=== PATIENT | female | born 2000 | race Caucasian/White ===

== ENCOUNTER 2022-09-25 12:56 | Emergency (ER) | payer OTHER, SELFPAY ==
[2022-09-25] VITALS (12 sets, daily range): BP systolic 108–120; BP diastolic 63–73; PULSE 67–86; RESP 12–20; TEMP 36.7; O2SAT 96–100
--- NOTE | 2022-09-25 13:04 | ECG_ITS ---
Measurements Intervals [place] Rate: 66 P: 61 [place]: 144 QRS: 37 QRSD: 81 T: 10 QT: 411 QTc: 431 Interpretive Statements SINUS RHYTHM BASELINE ARTIFACT- III, AVL NORMAL ECG NO PREVIOUS ECG AVAILABLE FOR COMPARISON Electronically Signed On 09-25-2022 14:46:25 CDT by Anurag Butler D.O.
[2022-09-25] MEDS: SODIUM CHLORIDE 0.9% IV 1,000 ML 999 ML IV CONT (13:12)
[2022-09-25 13:22] LABS: Basophils Percent Auto 0.5 % (0.2-1.2); Eosinophils Absolute Auto 0.3 K/mm3 (0-0.3); Eosinophils Percent Auto 5.8 % (0-4.4); Hematocrit 32.7 % (37.0-47.0); Hemoglobin 10.2 g/dL (12.0-15.0); Immature Granulocyte Absolute 0.02 K/mm3 (0.00-0.031); Immature Granulocyte Percent A 0.4 % (0-0.5); Lymphocytes Absolute Auto 1.26 K/mm3 (0.9-3.2); Mean Corpuscular HGB Conc 31.2 g/dl (32-36); Mean Corpuscular Hemoglobin 26.1 pg (26-34); Mean Corpuscular Volume 83.6 fl (80-100); Monocytes Absolute Auto 0.4 K/mm3 (0.1-0.6); Monocytes Percent Auto 6.9 % (2.6-8.5); Neutrophils Absolute Auto 3.5 K/mm3 (1.3-6.7); Neutrophils Percent Auto 63.4 % (45.5-73.1); Platelet Count Result 261 k/mm3 (150-375); Red Blood Count 3.91 M/mm3 (4.2-5.4); Red Cell Distribution Width 16.8 % (11.5-14.5); White Blood Count 5.5 K/mm3 (4.5-10.0)
[2022-09-25 13:40] LABS: Alanine Aminotransferase 15 U/L (6-35); Albumin Level 3.6 g/dL (3.5-5.1); Alkaline Phosphatase 57 U/L (38-126); Anion Gap 6 mmol/L (8-16); Aspartate Amino Transferase 19 U/L (14-36); Bilirubin,Total 0.5 mg/dL (0.2-1.3); Blood Urea Nitrogen 12 mg/dL (7-17); Carbon Dioxide 25 mmol/L (22-30); Chloride 105 mmol/L (98-107); Estimated CRCL calculation 118 ml/min; Estimated Glomerular Filt Rate > 60; Glucose 125 mg/dL (65-110); Magnesium 1.9 mg/dL (1.6-2.3); Sodium 136 mmol/L (137-145)
[2022-09-25 14:17] LABS: Appearance Urine Clear (Clear); Bacteria Urine None Seen /hpf; Bilirubin Urine Negative (Negative); Blood Urine Negative (Negative); Color Urine Yellow (Yellow); Glucose Urine UA Negative (Negative); Ketones Urine Negative (Negative); Leukocyte Esterase Ur Trace LEU/UL (Negative); Nitrate Urine Negative (Negative); Protein Urine 1+ mg/dL (Negative); RBC Urine 0-2 /hpf (0-2); Specific Grav Ur 1.015 (1.001-1.035); Squamous Epithelial Cell Urine Few /hpf (Few); Urobilinogen Urine 0.2 mg/dL (<2.0); WBC Urine 0-5 /hpf; pH Urine 5.5 (5.0-9.0)
[2022-09-25 14:23] LABS: Add Urine Microscopic? YES
--- NOTE | 2022-09-25 14:45 | ED.GENADULT ---
HPI - General Adult General Chief complaint: Syncope Stated complaint: syncope after giving blood Time Seen by Provider: 09/25/22 12:59 History of Present Illness HPI narrative: Patient 22-year-old female who presents the emergency department with chief complaint of syncope. Patient reports that she was donating blood and started to get very lightheaded he got nauseated and felt as though she was going to pass out. Patient denies chest pain denies diarrhea denies abdominal pain. Patient does report that she has had heavy periods Related Data Allergies Allergy/AdvReac Type Severity Reaction Status Date / Time latex Allergy Rash Verified 09/25/22 13:06 ondansetron [From Zofran] AdvReac Nausea and Verified 09/25/22 13:06 Vomiting Review of Systems Review of Systems: A 10 system review of systems was completed on the patient and is negative except for what is stated in the HPI. Nursing and ancillary documentation was reviewed. Exam Narrative: GENERAL: Well-appearing, well-nourished, and in no acute distress. HEAD: Normocephalic, atraumatic. EYES: PERRLA and EOMI. ENT: Nares clear, no rhinorrhea or epistaxis. Mucous membranes moist. NECK: Supple. CHEST: Clear to auscultation. No respiratory distress. HEART: Regular rate and rhythm. No murmur heard. Normal peripheral pulses. ABDOMEN: Soft, nontender, nondistended, normal active bowel sounds. EXTREMITIES: Normal range of motion. No edema. SKIN: Warm, dry, no rash. NEURO: No focal deficits. Alert and oriented x3. PSYCH: Normal mood and affect. Course Vital Signs Vital signs: Vital Signs Temperature 36.7 C 09/25/22 12:59 Pulse Rate 67 09/25/22 12:59 Respiratory Rate 18 09/25/22 12:59 Blood Pressure 108/73 09/25/22 12:59 Pulse Oximetry 99 09/25/22 12:59 Oxygen Delivery Room Air 09/25/22 12:59 Temperature 36.7 C 09/25/22 12:59 Pulse Rate 79 09/25/22 14:45 Respiratory Rate 15 09/25/22 14:45 Blood Pressure 120/69 09/25/22 14:31 Pulse Oximetry 100 09/25/22 14:45 Oxygen Delivery Room Air 09/25/22 12:59 Medical Decision Making [facility] Narrative Medical decision making narrative: Differential diagnosis includes vasovagal syncope, anemia, electrolyte abnormality, UTI Laboratory studies were obtained which showed a hemoglobin of 10.2 electrolytes were otherwise within normal limits sodium was 136 creatinine was 0.6 glucose was 125 magnesium was 1.9 bilirubin and ALT and AST are within normal limits. Urinalysis showed 1+ protein and trace leukocyte esterase. Patient received a liter of normal saline and received Zofran in the emergency department. Patient was hydrated in the emergency department and is feeling much better at this time was able to ambulate without difficulty. Patient be discharged home to follow-up with her primary care provider Vital Signs Vital Signs: Vital Signs Temperature 36.7 C 09/25/22 12:59 Pulse Rate 67 09/25/22 12:59 Respiratory Rate 18 09/25/22 12:59 Blood Pressure 108/73 09/25/22 12:59 Pulse Oximetry 99 09/25/22 12:59 Oxygen Delivery Room Air 09/25/22 12:59 Temperature 36.7 C 09/25/22 12:59 Pulse Rate 79 09/25/22 14:45 Respiratory Rate 15 09/25/22 14:45 Blood Pressure 120/69 09/25/22 14:31 Pulse Oximetry 100 09/25/22 14:45 Oxygen Delivery Room Air 09/25/22 12:59 Lab Data 09/25/22 13:14 09/25/22 13:13 Labs: Lab Results 09/25/22 09/25/22 09/25/22 Range/Units 13:13 13:14 13:15 WBC 5.5 (4.5-10.0) K/mm3 RBC 3.91 L (4.2-5.4) M/mm3 Hgb 10.2 L (12.0-15.0) g/dL Hct 32.7 L (37.0-47.0) % MCV 83.6 (80-100) fl MCH 26.1 (26-34) pg MCHC 31.2 L (32-36) g/dl RDW 16.8 H (11.5-14.5) % Plt Count 261 (150-375) k/mm3 MPV 10.0 (7.4-10.4) fl Immature Gran % (Auto) 0.4 (0-0.5) % Neut % (Auto) 63.4 (45.5-73.1) % Lymph % (Auto) 23.0 (18.3-44.2) %
== END 2022-09-25 15:56 | disposition home or self-care (01) ==
PROVIDERS: Emergency Provider Emergency Medicine; PCP Family Medicine
DX: R55 Syncope and collapse (principal)
CPT/HCPCS: 36415; 80053; 81001; 81025; 83735; 85025; 93005; 96360; 99284; J7030

== ENCOUNTER 2022-10-20 07:52 | Emergency (ER) | payer OTHER, SELFPAY ==
[2022-10-20] VITALS (20 sets, daily range): BP systolic 110–121; BP diastolic 59–80; PULSE 57–87; RESP 13–22; TEMP 36.6; O2SAT 92–100
--- NOTE | 2022-10-20 08:02 | ECG_ITS ---
Measurements Intervals [place] Rate: 55 P: 48 [place]: 146 QRS: 51 QRSD: 88 T: 34 QT: 440 QTc: 424 Interpretive Statements SINUS BRADYCARDIA OTHERWISE NORMAL ECG COMPARED TO ECG 09/25/2022 13:03:16 SINUS BRADYCARDIA NOW PRESENT Electronically Signed On 10-21-2022 10:31:10 CDT by Jimenez Rojas M.D.
[2022-10-20 08:50] LABS: Basophils Absolute Auto 0.1 K/mm3 (0.0-0.1); Basophils Percent Auto 1.1 % (0.2-1.2); Eosinophils Absolute Auto 0.2 K/mm3 (0-0.3); Eosinophils Percent Auto 4.9 % (0-4.4); Hemoglobin 10.3 g/dL (12.0-15.0); Immature Granulocyte Absolute 0.01 K/mm3 (0.00-0.031); Immature Granulocyte Percent A 0.2 % (0-0.5); Lymphocytes Absolute Auto 1.12 K/mm3 (0.9-3.2); Lymphocytes Percent Auto 25.1 % (18.3-44.2); Mean Corpuscular HGB Conc 30.3 g/dl (32-36); Mean Corpuscular Hemoglobin 25.2 pg (26-34); Mean Corpuscular Volume 83.3 fl (80-100); Mean Platelet Volume 10.2 fl (7.4-10.4); Monocytes Absolute Auto 0.6 K/mm3 (0.1-0.6); Monocytes Percent Auto 12.6 % (2.6-8.5); Neutrophils Absolute Auto 2.5 K/mm3 (1.3-6.7); Neutrophils Percent Auto 56.1 % (45.5-73.1); Platelet Count Result 270 k/mm3 (150-375); Red Blood Count 4.08 M/mm3 (4.2-5.4); Red Cell Distribution Width 16.7 % (11.5-14.5); White Blood Count 4.5 K/mm3 (4.5-10.0)
[2022-10-20 09:01] LABS: Alanine Aminotransferase 17 U/L (6-35); Albumin Level 4.4 g/dL (3.5-5.1); Alkaline Phosphatase 69 U/L (38-126); Anion Gap 7 mmol/L (8-16); Aspartate Amino Transferase 24 U/L (14-36); Bilirubin,Total 0.6 mg/dL (0.2-1.3); Blood Urea Nitrogen 11 mg/dL (7-17); Calcium 8.6 mg/dL (8.4-10.2); Carbon Dioxide 24 mmol/L (22-30); Chloride 110 mmol/L (98-107); Estimated CRCL calculation 120 ml/min; Estimated Glomerular Filt Rate > 60; Glucose 91 mg/dL (65-110); Potassium 3.9 mmol/L (3.4-5.0); Sodium 141 mmol/L (137-145)
[2022-10-20 09:23] LABS: Magnesium 2.1 mg/dL (1.6-2.3)
[2022-10-20 09:43] LABS: D Dimer < 0.27 ug/mL (<0.48)
--- NOTE | 2022-10-20 10:46 | ED.SYNCOPE ---
HPI - Syncope General Chief Complaint: Syncope Stated Complaint: SYNCOPAL EVENT Time Seen by Provider: 10/20/22 07:52 History of Present Illness HPI narrative: This is a 22-year-old female, brought in by EMS after syncopal episode at work. The patient states she was sitting on a chair, when she became lightheaded and dizzy, accompanied by full body paresthesias. She lowered herself to the floor and believes she lost consciousness. She denies chest pain, shortness of breath or palpitations throughout the episode. She denies weakness, numbness, recent change in medications or recent illness. Related Data Allergies Allergy/AdvReac Type Severity Reaction Status Date / Time latex Allergy Rash Verified 10/20/22 08:02 ondansetron [From Zofran] AdvReac Nausea and Verified 10/20/22 08:02 Vomiting Review of Systems Review of Systems: CONSTITUTIONAL: Denies fever, chills, or sweats. CARDIOVASCULAR: Denies chest pain, palpitations, or edema. RESPIRATORY: Denies cough or dyspnea. GASTROINTESTINAL: Denies abdominal pain, nausea, vomiting, or diarrhea. GENITOURINARY: Denies dysuria or hematuria. SKIN: Denies rash or itching. MUSCULOSKELETAL: Denies back pain, joint pain, or myalgia. NEUROLOGIC: Denies headache, numbness, dizziness, or weakness. PSYCHIATRIC: Denies anxiety or depression. [facility] Past Medical History Medical History (Updated 10/20/22 @ 10:53 by Osei Rodriguez MD) Asthma Environmental allergies Social anxiety disorder Surgical History Surgical History (Updated 10/20/22 @ 10:53 by Osei Rodriguez MD) No significant past surgical history Family History Family History Mother Asthma Depression Anxiety Father Hypertension Thyroid disease Sibling Anxiety Asthma Depression Grandparent Asthma Cancer Grandparent Cancer Hypertension Heart disease Thyroid disease Social History Social History Smoking status: Never smoker Alcohol intake: current Drinks per week: 2 Substance use: unknown Lack of Transportation: YES Lack of Food: Sometimes True Current Housing: I Have Housing Concerned About Future Housing: No Difficulty Paying Gas/Electric Bills: No Difficulty Paying for Meds: YES Currently Unemployed: No Education: High School Diploma/GED Difficulty w/ Childcare or Family Care: No Living arrangements: with family Occupation/Education: occupation Gender identity (if verbalized by the patient): Female Exam Narrative: GENERAL: Well-developed, well-nourished, and in no acute distress. HEAD: Normocephalic, atraumatic. EYES: PERRLA and EOMI. ENT: Nares clear, no rhinorrhea or epistaxis. Mucous membranes moist. Oropharynx without tonsillar hypertrophy exudate or other lesions. NECK: Supple. No adenopathy or masses. No carotid bruits or JVD CHEST: Clear to auscultation. No respiratory distress. No wheezes rales or rhonchi HEART: Regular rate and rhythm. No murmur heard. Normal peripheral pulses. ABDOMEN: Soft, nontender, nondistended, normal active bowel sounds. EXTREMITIES: Normal range of motion. No edema. SKIN: Warm, dry, no rash. NEURO: No focal deficits. Alert and oriented x3. PSYCH: Normal mood and affect. Course Course Emergency Course: 10:40 - EKG unremarkable. Review of the patient's potline monitor shows no abnormal events. CBC demonstrates baseline anemia of 10.3. Chemistries are grossly unremarkable. D-dimer negative. test negative. It is unclear as to the cause of the patient's syncopal event, though sounds vasovagal in nature. Will discharge with recommendation for primary care follow-up and Holter monitoring. Discussed return and emergency precautions including signs/symptoms of ACS and respiratory distress. The patient voiced understanding and is comfortable with the plan. All questions an
== END 2022-10-20 11:01 | disposition home or self-care (01) ==
PROVIDERS: Emergency Provider Preventive Medicine Aerospace Medicine; PCP Family Medicine
DX: R55 Syncope and collapse (principal); J45.909 Unspecified asthma, uncomplicated; R00.1 Bradycardia, unspecified
CPT/HCPCS: 36415; 80053; 81025; 83735; 85025; 85380; 93005; 99284

== ENCOUNTER 2022-10-24 15:31 | Outpatient (CLI) | payer OTHER, SELFPAY ==
[2022-10-24 19:46] LABS: Basophils Absolute Auto 0.1 K/mm3 (0.0-0.1); Basophils Percent Auto 0.8 % (0.2-1.2); Eosinophils Absolute Auto 0.3 K/mm3 (0-0.3); Eosinophils Percent Auto 4.9 % (0-4.4); Hematocrit 36.1 % (37.0-47.0); Hemoglobin 10.9 g/dL (12.0-15.0); Immature Granulocyte Absolute 0.01 K/mm3 (0.00-0.031); Immature Granulocyte Percent A 0.2 % (0-0.5); Lymphocytes Percent Auto 26.3 % (18.3-44.2); Mean Corpuscular HGB Conc 30.2 g/dl (32-36); Mean Corpuscular Hemoglobin 25.1 pg (26-34); Mean Corpuscular Volume 83.2 fl (80-100); Mean Platelet Volume 10.4 fl (7.4-10.4); Monocytes Absolute Auto 0.5 K/mm3 (0.1-0.6); Monocytes Percent Auto 8.7 % (2.6-8.5); Neutrophils Absolute Auto 3.6 K/mm3 (1.3-6.7); Neutrophils Percent Auto 59.1 % (45.5-73.1); Platelet Count Result 291 k/mm3 (150-375); Red Blood Count 4.34 M/mm3 (4.2-5.4); Red Cell Distribution Width 16.5 % (11.5-14.5); White Blood Count 6.1 K/mm3 (4.5-10.0)
[2022-10-24 20:07] LABS: Alanine Aminotransferase 16 U/L (6-35); Albumin Level 4.5 g/dL (3.5-5.1); Alkaline Phosphatase 70 U/L (38-126); Anion Gap 7 mmol/L (8-16); Aspartate Amino Transferase 30 U/L (14-36); Bilirubin,Total 0.9 mg/dL (0.2-1.3); Blood Urea Nitrogen 10 mg/dL (7-17); Calcium 9.1 mg/dL (8.4-10.2); Carbon Dioxide 25 mmol/L (22-30); Chloride 106 mmol/L (98-107); Estimated Glomerular Filt Rate > 60; Glucose 88 mg/dL (65-110); Potassium 4.3 mmol/L (3.4-5.0); Sodium 138 mmol/L (137-145)
[2022-10-24 20:16] LABS: Iron 29 ug/dL (37-170)
[2022-10-24 20:26] LABS: Percent Iron Saturation 6 % (20-50)
[2022-10-24 20:29] LABS: Vitamin D 25 Hydroxy 14.6 ng/mL
== END 2022-10-24 15:32 | disposition home or self-care (01) ==
LOC: ANHGOSHLAB 15:32
PROVIDERS: PCP Family Medicine; Visit Provider Nurse Practitioner Family
DX: Z00.00 Encounter for general adult medical examination without abnormal findings (principal); I10 Essential (primary) hypertension; E55.9 Vitamin D deficiency, unspecified; D64.9 Anemia, unspecified; R55 Syncope and collapse
CPT/HCPCS: 36415; 80053; 82306; 82607; 82746; 83540; 83550; 83735; 85025

== ENCOUNTER 2022-11-25 10:35 | Outpatient (CLI) | payer OTHER, SELFPAY ==
--- NOTE | 2022-11-28 20:38 | P.PCNHOL_ITS ---
Holter/Event Monitor Holter/Event Monitor Date of procedure: 11/28/22 Holter/Event Procedure: 48 Hr Holter Monitor Diagnosis: Syncope and collapse Indications: 22-year-old female with syncope and collapse Image/Tracing Quality: Good Finding: The patient was monitored for 48 hours. The underlying rhythm was sinus with an average heart rate of 81 ppm (range 50-148 ppm). There only 14 PVCs and 1 APC noted. There is no atrial fibrillation, SVT, ventricular tachycardia, AV block or pauses. No symptoms were recorded. Conclusion: Unremarkable 48 hour Holter monitor. No symptoms were recorded.
== END 2022-11-25 10:36 | disposition home or self-care (01) ==
PROVIDERS: PCP Family Medicine; Visit Provider Nurse Practitioner Family
DX: R55 Syncope and collapse (principal)
CPT/HCPCS: 93225; 93226

== ENCOUNTER 2022-12-04 08:36 | Outpatient (CLI) | payer OTHER, SELFPAY ==
--- NOTE | 2022-12-04 08:41 | EST_ITS ---
Patient Info Name: Genoveva Monique Age: 22 years : 2000 Gender: Female Ht: 63 in Wt: 157 lbs BSA: 1.80 m2 HR: 72 bpm BP: 123 / 71 mmHg Heart Rhythm: Sinus Rhythm Exam Date: 12/04/2022 8:50 AM Exam Location: [facility] Stress Patient Status: Outpatient Admit Date: 12/04/2022 Staff Ordering Physician: Joselyn Orona APRN Attending Provider: Joselyn Orona APRN Exercise Technologist: Jania Dickson CT Exercise Physician: Anurag Butler DO Exam Type: CA stress test treadmill Study Info Indications R06.09 - Other forms of dyspnea R07.89 - Other chest pain R55 - Syncope and collapse A treadmill exercise stress test was performed. Summary 1. 1. Negative [place] exercise stress test for ischemic ST changes by ECG criteria. 2. 2. Reduced functional capacity, achieving 10 METs of workload. 3. 3. Appropriate HR response to exercise. 4. 4. Appropriate HR recovery at 1 minute post exercise. 5. 5. No imaging with stress testing. 6. 6. Patient informed of the above results. Protocol: [place] Stress ECG Details Stage: REST Duration (min): 1 min : 7 sec Speed (mph): 0.0 Grade (%): 0 HR (bpm): 66 SBP (mmHg): 123 DBP (mmHg): 71 METS: --- Stage: REST Duration (min): 12 min : 40 sec Speed (mph): 0.0 Grade (%): 0 HR (bpm): 73 SBP (mmHg): 123 DBP (mmHg): 71 METS: --- Stage: STAGE 1 Duration (min): 1 min : 0 sec Speed (mph): 1.7 Grade (%): 10 HR (bpm): 114 SBP (mmHg): 123 DBP (mmHg): 71 METS: --- Stage: STAGE 1 Duration (min): 2 min : 0 sec Speed (mph): 1.7 Grade (%): 10 HR (bpm): 116 SBP (mmHg): 123 DBP (mmHg): 71 METS: --- Stage: STAGE 1 Duration (min): 3 min : 0 sec Speed (mph): 1.7 Grade (%): 10 HR (bpm): 127 SBP (mmHg): 138 DBP (mmHg): 72 METS: --- Stage: STAGE 2 Duration (min): 1 min : 0 sec Speed (mph): 2.5 Grade (%): 12 HR (bpm): 125 SBP (mmHg): 138 DBP (mmHg): 72 METS: --- Stage: STAGE 2 Duration (min): 2 min : 0 sec Speed (mph): 2.5 Grade (%): 12 HR (bpm): 126 SBP (mmHg): 138 DBP (mmHg): 72 METS: --- Stage: STAGE 2 Duration (min): 3 min : 0 sec Speed (mph): 2.5 Grade (%): 12 HR (bpm): 131 SBP (mmHg): 138 DBP (mmHg): 72 METS: --- Stage: STAGE 3 Duration (min): 1 min : 0 sec Speed (mph): 3.4 Grade (%): 14 HR (bpm): 150 SBP (mmHg): 194 DBP (mmHg): 73 METS: --- Stage: STAGE 3 Duration (min): 2 min : 0 sec Speed (mph): 3.4 Grade (%): 14 HR (bpm): 159 SBP (mmHg): 194 DBP (mmHg): 73 METS: --- Stage: STAGE 3 Duration (min): 3 min : 0 sec Speed (mph): 3.4 Grade (%): 14 HR (bpm): 169 SBP (mmHg): 194 DBP (mmHg): 73 METS: --- Stage: RECOVERY Duration (min): 0 min : 59 sec Speed (mph): 0.0 Grade (%): 0 HR (bpm): 124 SBP (mmHg): 149 DBP (mmHg): 76 METS: --- Stage: RECOVERY Duration (min): 1 min : 59 sec Speed (mph): 0.0 Gra
== END 2022-12-04 08:37 | disposition home or self-care (01) ==
PROVIDERS: PCP Family Medicine; Visit Provider Nurse Practitioner Family
DX: R55 Syncope and collapse (principal)
CPT/HCPCS: 93017

== ENCOUNTER 2023-05-31 09:02 | Emergency (ER) | payer OTHER, SELFPAY ==
[2023-05-31 09:08] VITALS: BP 134/85; PULSE 66; RESP 18; TEMP 36.7; O2SAT 100
--- NOTE | 2023-05-31 09:33 | ED.GENADULT ---
HPI - General Adult General Chief complaint: Unspecified Stated complaint: rectal bleeding Time Seen by Provider: 05/31/23 09:13 Source: patient Mode of arrival: ambulatory Limitations: no limitations History of Present Illness HPI narrative: Patient is a 22 y/o female who presents to the ED with c/o rectal bleeding. Patient reports she had a BM this morning and noticed some bright red rectal bleeding with wiping afterwards. She did notice some blood in the water, but did not notice any mixed in with the stool. The BM was otherwise normal, denied pain associated with BM or significant straining. Denied diarrhea. Denied melena. Denies abdominal pain, nausea, vomiting, fevers. Denies history of similar. Denies known hemorrhoids. Related Data Home Medications Medication Instructions Recorded Confirmed levonorgestrel 17.5 mcg/24 hrs 1 device intrauterine ONCE 11/06/22 02/05/23 (5yrs) 19.5mg intrauterine device (Kyleena) Allergies Allergy/AdvReac Type Severity Reaction Status Date / Time coconut Allergy Severe Hives Verified 05/31/23 09:16 latex Allergy Rash Verified 05/31/23 09:16 ondansetron [From Zofran] AdvReac Nausea and Verified 05/31/23 09:16 Vomiting Review of Systems Review of Systems: CONSTITUTIONAL: Denies fever, chills, or sweats. CARDIOVASCULAR: Denies chest pain. RESPIRATORY: Denies dyspnea. GASTROINTESTINAL: See HPI. GENITOURINARY: Denies dysuria or hematuria. All systems reviewed & are unremarkable except as noted in HPI and below PMFSH Past Medical History Medical History Asthma Environmental allergies Numbness Social anxiety disorder Syncope Vitamin D deficiency, unspecified Surgical History Surgical History No significant past surgical history Family History Family History Mother Asthma Depression Anxiety Father Hypertension Thyroid disease Sibling Anxiety Asthma Depression Grandparent Asthma Cancer Grandparent Cancer Hypertension Heart disease Thyroid disease Social History Social History Smoking status: Never smoker Alcohol intake: current Drinks per week: 2 Substance use: unknown Lack of Transportation: YES Lack of Food: Sometimes True Current Housing: I Have Housing Concerned About Future Housing: No Difficulty Paying Gas/Electric Bills: No Difficulty Paying for Meds: YES Currently Unemployed: No Education: High School Diploma/GED Difficulty w/ Childcare or Family Care: No Living arrangements: with family Occupation/Education: occupation Gender identity (if verbalized by the patient): Female Exam Narrative: GENERAL: Anxious appearing, obese with BMI of 30.4, non-toxic, in no acute distress. HEAD: Normocephalic, atraumatic. RESPIRATORY: Airway patent, respirations nonlabored. CARDIOVASCULAR: Regular rate and rhythm. ABDOMINAL: Soft, no tenderness throughout abdomen, nondistended. Normoactive BS. RECTAL: Normal rectal tone. No external hemorrhoids noted. No significant or large internal hemorrhoids palpated on exam. ISAIAH with brown stool, guaiac negative. MUSCULOSKELETAL: Moves all extremities. No gross deformities. SKIN: Warm, dry, normal color. NEURO: A&O X3. Speech clear. Cranial nerves II-XII grossly intact. No ataxic movements. PSYCHIATRIC: Anxious, tearful. Normal interaction. Course Vital Signs Vital signs: Vital Signs Temperature 98.0 F 05/31/23 09:08 Pulse Rate 66 05/31/23 09:08 Respiratory Rate 18 05/31/23 09:08 Blood Pressure 134/85 05/31/23 09:08 Pulse Oximetry 100 05/31/23 09:08 Oxygen Delivery Room Air 05/31/23 09:08 Temperature 98.0 F 05/31/23 09:08 Pulse Rate 66 05/31/23 09:08 Respiratory Rate 18 02
[2023-05-31 10:02] LABS: Basophils Percent Auto 0.6 % (0.2-1.2); Eosinophils Absolute Auto 0.2 K/mm3 (0-0.3); Eosinophils Percent Auto 3.6 % (0-4.4); Hematocrit 40.8 % (37.0-47.0); Hemoglobin 13.6 g/dL (12.0-15.0); Immature Granulocyte Absolute 0.01 K/mm3 (0.00-0.031); Immature Granulocyte Percent A 0.2 % (0-0.5); Lymphocytes Absolute Auto 1.25 K/mm3 (0.9-3.2); Lymphocytes Percent Auto 25.2 % (18.3-44.2); Mean Corpuscular HGB Conc 33.3 g/dl (32-36); Mean Corpuscular Hemoglobin 31.4 pg (26-34); Mean Corpuscular Volume 94.2 fl (80-100); Mean Platelet Volume 10.2 fl (7.4-10.4); Monocytes Absolute Auto 0.5 K/mm3 (0.1-0.6); Monocytes Percent Auto 9.9 % (2.6-8.5); Neutrophils Percent Auto 60.5 % (45.5-73.1); Platelet Count Result 232 k/mm3 (150-375); Red Blood Count 4.33 M/mm3 (4.2-5.4); Red Cell Distribution Width 12.8 % (11.5-14.5)
[2023-05-31 10:11] LABS: Alanine Aminotransferase 14 U/L (6-35); Albumin Level 4.1 g/dL (3.5-5.1); Alkaline Phosphatase 63 U/L (38-126); Anion Gap 5 mmol/L (8-16); Aspartate Amino Transferase 22 U/L (14-36); Bilirubin,Total 0.7 mg/dL (0.2-1.3); Blood Urea Nitrogen 12 mg/dL (7-17); Calcium 9.2 mg/dL (8.4-10.2); Carbon Dioxide 24 mmol/L (22-30); Chloride 109 mmol/L (98-107); Estimated CRCL calculation 120 ml/min; Estimated Glomerular Filt Rate > 60; Glucose 90 mg/dL (65-110); Potassium 4.1 mmol/L (3.4-5.0); Sodium 138 mmol/L (137-145)
== END 2023-05-31 10:57 | disposition home or self-care (01) ==
LOC: ANHED 09:49
PROVIDERS: Emergency Provider Physician Assistant; PCP Family Medicine
DX: K62.5 Hemorrhage of anus and rectum (principal); J45.909 Unspecified asthma, uncomplicated; E55.9 Vitamin D deficiency, unspecified; Z97.5 Presence of (intrauterine) contraceptive device
CPT/HCPCS: 36415; 80053; 85025; 99283

== ENCOUNTER 2023-10-22 03:58 | Emergency (ER) | payer OTHER, SELFPAY ==
--- NOTE | ~2023-10-22 | XR_ITS ---
Clinical Indication: Shortness of breath PA and lateral views of the chest: Comparison: None Findings: The lungs are clear, without evidence of focal consolidation or pleural effusion. Cardiome diastinal silhouette is within normal limits. Bones and soft tissues are unremarkable. Impression: Normal chest. Reviewed, dictated and finalized at [facility]. Impression: Normal chest.
[2023-10-22 04:03] VITALS: BP 127/93; PULSE 80; RESP 20; TEMP 36.6; O2SAT 99
--- NOTE | 2023-10-22 04:08 | ECG_ITS ---
Test Date: 2023-10-22 04:09:17 Measurements Intervals [place] Rate: 79 P: 71 NM: 144 QRS: 46 QRSD: 86 T: 29 QT: 370 QTc: 426 Interpretive Statements SINUS RHYTHM POSSIBLE LEFT ATRIAL ENLARGEMENT [-0.1mV P WAVE IN V1/V2] No previous ECG available for comparison Electronically Signed On 10-22-2023 11:53:34 CDT by Pia Thapa M.D.
[2023-10-22 04:14] VITALS: O2SAT 99
[2023-10-22 04:16] LABS: Basophils Percent Auto 0.6 % (0.2-1.2); Eosinophils Absolute Auto 0.3 K/mm3 (0-0.3); Eosinophils Percent Auto 3.7 % (0-4.4); Hemoglobin 14.9 g/dL (12.0-15.0); Immature Granulocyte Absolute 0.01 K/mm3 (0.00-0.031); Immature Granulocyte Percent A 0.1 % (0-0.5); Lymphocytes Percent Auto 28.3 % (18.3-44.2); Mean Corpuscular HGB Conc 33.9 g/dl (32-36); Mean Corpuscular Volume 94.4 fl (80-100); Mean Platelet Volume 9.8 fl (7.4-10.4); Monocytes Absolute Auto 0.8 K/mm3 (0.1-0.6); Monocytes Percent Auto 10.6 % (2.6-8.5); Neutrophils Percent Auto 56.7 % (45.5-73.1); Platelet Count Result 255 k/mm3 (150-375); Red Blood Count 4.66 M/mm3 (4.2-5.4); Red Cell Distribution Width 12.3 % (11.5-14.5); White Blood Count 7.1 K/mm3 (4.5-10.0)
--- NOTE | 2023-10-22 04:25 | ED.SOB ---
HPI - SOB/Dyspnea General Chief Complaint: Shortness of Breath/Dyspnea Stated Complaint: sob Time Seen by Provider: 10/22/23 04:24 Source: patient and family ( partner) Mode of arrival: ambulatory Limitations: clinical condition History of Present Illness HPI Narrative: patient presents with complaint of shortness of breath. She types on phone at triage that she woke up unable to breathe at 11pm, 1am, and 3:30am and her inhaler which she takes for asthma is not working. Associated with chest tightness. No edema including no unilateral leg swelling. Has been coughing but no hemoptysis. No fever, recent surgery/travel. Is on Kyleena for contraception. No prior bipap or intubation for asthma. . Related Data Home Medications Medication Instructions Recorded Confirmed levonorgestrel 17.5 mcg/24 hr (up 1 device intrauterine ONCE 11/06/22 02/05/23 to 5 yrs) 19.5mg intrauterine device (Kyleena) Allergies Allergy/AdvReac Type Severity Reaction Status Date / Time coconut Allergy Severe Hives Verified 05/31/23 09:16 latex Allergy Rash Verified 05/31/23 09:16 ondansetron [From Zofran] AdvReac Nausea and Verified 05/31/23 09:16 Vomiting PMFSH Past Medical History Medical History Asthma Environmental allergies Numbness Social anxiety disorder Syncope Vitamin D deficiency, unspecified Surgical History Surgical History No significant past surgical history Family History Family History Mother Asthma Depression Anxiety Father Hypertension Thyroid disease Sibling Anxiety Asthma Depression Grandparent Asthma Cancer Grandparent Cancer Hypertension Heart disease Thyroid disease Social History Social History (Updated 10/23/23 @ 09:44 by Brea Layne MD) Social History: Engaged/has a fiance Smoking status: Never smoker Alcohol intake: current Drinks per week: 2 Substance use: unknown Lack of Transportation: YES Lack of Food: Sometimes True Current Housing: I Have Housing Concerned About Future Housing: No Difficulty Paying Gas/Electric Bills: No Difficulty Paying for Meds: YES Currently Unemployed: No Education: High School Diploma/GED Difficulty w/ Childcare or Family Care: No Living arrangements: with family Occupation/Education: occupation Gender identity (if verbalized by the patient): Female Exam Narrative: GENERAL: Well-appearing, well-nourished HEAD: Normocephalic, atraumatic. EYES: Non injected, non icteric ENT: Nares clear, no rhinorrhea or epistaxis. NECK: Supple. CHEST: Tachypneic but with poor air movement on auscultation. . HEART: Regular rate and rhythm. . ABDOMEN: Soft, nondistended. EXTREMITIES: Normal range of motion. No LE edema. SKIN: Warm, dry, no rash. NEURO: No focal deficits. Alert and oriented x3. PSYCH: Congruent mood and affect, anxious. Not initially speaking words, only nodding and typing. Course Vital Signs Vital signs: Vital Signs Temperature 97.9 F 10/22/23 04:03 Pulse Rate 80 10/22/23 04:03 Respiratory Rate 20 10/22/23 04:03 Blood Pressure 127/93 H 10/22/23 04:03 Pulse Oximetry 99 10/22/23 04:03 Oxygen Delivery Room Air 10/22/23 04:03 Temperature 97.9 F 10/22/23 04:03 Pulse Rate 87 10/22/23 06:32 Respiratory Rate 15 10/22/23 06:32 Blood Pressure 128/78 10/22/23 06:32 Pulse Oximetry 100 10/22/23 06:32 Oxygen Delivery Room Air 10/22/23 04:14 MDM - SOB/Dyspnea MDM Narrative Medical decision making narrative: Patient presents with report of SOB. in the emergency department she is afebrile with acceptable vital signs. patient is refusing to talk and instead communicates by typing on phone. She appears in distress and is tachypneic however with poor air moveme
[2023-10-22 04:26] LABS: Alanine Aminotransferase 20 U/L (6-35); Albumin Level 4.5 g/dL (3.5-5.1); Alkaline Phosphatase 57 U/L (38-126); Anion Gap 8 mmol/L (4-12); Aspartate Amino Transferase 23 U/L (14-36); Blood Urea Nitrogen 9 mg/dL (7-17); Carbon Dioxide 22 mmol/L (22-30); Chloride 109 mmol/L (98-107); Estimated CRCL calculation 124 ml/min; Estimated Glomerular Filt Rate > 60; Glucose 91 mg/dL (65-110); Potassium 3.9 mmol/L (3.4-5.0); Sodium 139 mmol/L (137-145)
[2023-10-22] MEDS: ALBUTEROL SULFATE NEB 2.5 MG/3 ML INH INHALATION (05:03)
[2023-10-22] MEDS: MAGNESIUM SULF 1 GM/D5W 100 ML 1 GM/100 ML BAG IVPB (05:04)
[2023-10-22] MEDS: IPRATROPIUM 0.5 MG/ALBUTEROL SULFATE 2.5 MG AMPUL.NEB 3 ML INHALATION (05:04)
[2023-10-22] MEDS: predniSONE 20 MG TABLET 60 MG PO (05:04)
[2023-10-22 05:06] VITALS: PULSE 71; RESP 18
[2023-10-22 05:06] LABS: Magnesium 2.1 mg/dL (1.6-2.3)
[2023-10-22 05:14] VITALS: PULSE 80; RESP 18
[2023-10-22 05:18] LABS: Influenza A QL RT-PCR Negative (Negative); Influenza B QL RT-PCR Negative (Negative); RSV RNA, RT-PCR Negative (Negative); SARS-CoV-2 RNA PCR Negative (Negative)
[2023-10-22 05:23] VITALS: BP 126/75; PULSE 85; RESP 15; O2SAT 97
[2023-10-22 05:26] LABS: D Dimer 0.27 ug/mL (<0.48)
[2023-10-22 06:32] VITALS: BP 128/78; PULSE 87; RESP 15; O2SAT 100
== END 2023-10-22 06:33 | disposition home or self-care (01) ==
PROVIDERS: Emergency Provider Student in an Organized Health Care Education/Training Program
DX: J45.901 Unspecified asthma with (acute) exacerbation (principal); Z20.822 Contact with and (suspected) exposure to COVID-19; E55.9 Vitamin D deficiency, unspecified; Z97.5 Presence of (intrauterine) contraceptive device; Z79.899 Other long term (current) drug therapy; R94.31 Abnormal electrocardiogram [ECG] [EKG]
CPT/HCPCS: 36415; 71046; 80053; 81025; 83735; 85025; 85380; 87637; 93005; 94640; 96365; 99284; J3475; J7512

== ENCOUNTER 2024-01-27 18:56 | Emergency (ER) | payer OTHER, SELFPAY ==
[2024-01-27 18:58] VITALS: BP 144/102; PULSE 84; RESP 20; TEMP 36.8; O2SAT 96
--- NOTE | 2024-01-27 19:37 | PC.NURSE ---
Patient left waiting at unknown time. Patient called for chest Xray. Patient was not there.
== END 2024-01-27 19:37 | disposition left against medical advice (07) ==
LOC: ANHED 19:41
DX: R06.02 Shortness of breath (principal)
CPT/HCPCS: 99199

== ENCOUNTER 2024-12-13 20:29 | Emergency (ER) | payer OTHER, SELFPAY ==
[2024-12-13 20:31] VITALS: BP 132/75; PULSE 80; RESP 16; TEMP 36.2; O2SAT 97
--- OUTSIDE RECORDS SUMMARY | 2024-12-13 20:31 | XMS_ITS | Continuity of Care Document ---
Author Organization [facility] Address [address] [place] [address] Phone Care Team Providers Care Client Experience Administrator Name Role Phone Tera Hutchison LCSW Unavailable Unavailable Allergies, Adverse Reactions, Alerts Substance Reaction Status Criticality coconut Active No Information ONDANSETRON HCL Active No Informati on Procedures Procedure Date Therapeutic behavioral services, per 15 minutes 1ST COMPRE PREV MED E/M NEW PT Apr Alcohol and/or drug screening 5 HEMOGLOBIN; GLYCOSYLATED (A1C) Advance Directives Directive Yes / No Effective Date File Name No Information Encounters Encounter Description Practice Location Reason(s) For Visit Diagnoses Date Provider Providers Copied on Encounter [facility], [address], [place], [place], [id number] , [place] tel: [phone] [facility] Unspecified mood [affective] disorder 5 Foster Haley. [address], [place], [place], [id number], [place]. tel:[phone] 1ST COMPRE PREV MED E/M NEW PT 39 [facility], [address], [place], [place], [address] , [place] tel: [phone] [facility] Care (chief complaint) Body mass index (BMI) 32.0-32.9, adultWell adult check w/ abnormal findingMood disorderEncount er for screening for other disorder 5 Katie [address]علي. [address], [place], [place], [id number], [place]. tel:[phone] Family History Family Member Type Diagnosis Age At Onset No Information Payers Payer name Insurance type Covered green party ID Valentín hand([employer] [id number] Social History Type Description Quantity Date Captured Comments Alcohol Use Details Unknown Caffeine Use Details Unknown Tobacco Use Status No Information Smoking Status No Information Sex Female Chief Complaint And Reason For Visit No Information Reason For Referral Reason For Referral No Information Plan Of Treatment Date Type Action Status Nutrition Recommendation Nutrition therap y completed History Of Present Illness Encounter Date Complaint History Of Prese nt Illness Establish Care Previous doctor: Was seeing a doctor at work?Recent hospitalizations: September 2022, fainting, had cardiac workup which was negativeMedical Problems: Asthma, Anxiety ,depression Medications: Escitalopram 10 mg, Albuterol, Qvar Surgical History: NoneAllergies: Zofran- emesisVaccines: UTDPap: 2021 [id number]: Irregular with kyleenaContraception: KyleenaSTI testing?: Not interestedWork: [employer] specialistLives: PartnerTobacco: DeniesAlcohol: RarelyOther substances: DeniesDiet: Rices, pastas, trying to cut out fast food, oats, granolas, Activity: Gym 3-5 times a week for hour and a halfPatient is interested in having screening for autism. Was in the foster system as a youth and did not get screened. Does not like noises, feels like she does not understand people, likes patterns and rules. Functional Status Date Functional Assessmen t No Information Instructions Date Instruction Additional Infor jayleen - Patient reports co ncern for autism spectrum disorder, interested in evaluation- Met with today see associated note- On Escitalopram 10 mg daily from external physician, reports she does not need that medication prescribed by PCP Related to Mood disorder - CBC, CMP, A1c, lip id today, patient reports she is fasting- Declined STI screening- Reports UTD on vaccines- Sees OBGYN for pap, next due May 2024- Kyleena in place Related to Well adult check w/ abnormal finding Prescribed activity/ exercise education Related to Body mass index [BMI] 32.0-32.9, adult Assessments Type Assessment Date No Information Patient Care Teams Name Effective Dates (start - stop) Status Members No Information
[2024-12-13 20:47] LABS: Hematocrit 38.4 % (37.0-47.0); Hemoglobin 12.6 g/dL (12.0-15.0); Immature Granulocyte Percent A 0.2 % (0-0.5); Lymphocytes Absolute Auto 1.90 K/mm3 (0.9-3.2); Mean Corpuscular HGB Conc 32.8 g/dl (32-36); Mean Corpuscular Hemoglobin 30.7 pg (26-34); Mean Corpuscular Volume 93.4 fl (80-100); Nucleated Red Blood Cells Absolute Auto 0.000 K/mm3 (0.0-0.012); Nucleated Red Blood Cells Perc 0.0 % (0.0-0.2); Platelet Count Result 269 k/mm3 (150-375); Red Blood Count 4.11 M/mm3 (4.2-5.4); White Blood Count 6.3 K/mm3 (4.5-10.0)
[2024-12-13 20:56] LABS: Alanine Aminotransferase 15 U/L (6-35); Albumin Level 4.4 g/dL (3.5-5.1); Alkaline Phosphatase 58 U/L (38-126); Anion Gap 9 mmol/L (4-12); Aspartate Amino Transferase 26 U/L (14-36); Bilirubin,Total 0.5 mg/dL (0.2-1.3); Blood Urea Nitrogen 15 mg/dL (7-17); Calcium 9.3 mg/dL (8.4-10.2); Carbon Dioxide 21 mmol/L (22-30); Chloride 107 mmol/L (98-107); Estimated CRCL calculation 109 ml/min; Estimated Glomerular Filt Rate > 60; Glucose 102 mg/dL (65-110); Lipase 71 U/L (23-300); Potassium 4.0 mmol/L (3.4-5.0); Sodium 137 mmol/L (137-145); Total Protein 7.4 g/dL (6.3-8.2)
[2024-12-13 21:13] LABS: Add Urine Microscopic? YES; Appearance Urine Clear (Clear); Glucose Urine UA Negative (Negative); Leukocyte Esterase Ur 1+ LEU/UL (Negative); Need Manual Microscopic Reviewed; Nitrate Urine Negative (Negative); Non Pathogenic Casts 0-2; Specific Grav Ur 1.018 (1.001-1.035)
--- OUTSIDE RECORDS SUMMARY | 2024-12-13 23:06 | XMS_ITS | Continuity of Care Document ---
Author Organization [facility] Address [address] [place] [address] Phone Care Team Providers Care General Intern Name Role Phone Tera Hutchison LCSW Unavailable [...] Encounter [facility], [address], [place], [place], [id number] , [place] tel: [phone] [facility] Unspecified mood [affective] disorder [address] Haley. [address], [place], [place], [id number], [place]. tel:[phone] 1ST COMPRE PREV MED E/M NEW PT 39 [facility], [address], [place], [place], [id number] , [place] tel: [phone] [facility] Care (chief complaint) Body mass index (BMI) 32.0-32.9, adultWell adult check w/ abnormal findingMood disorderEncount er for screening for other disorder 5 Katie العلي. [address], [place], [place], [id number], [place]. tel:[phone] Family History Family Member Type Diagnosis Age At Onset No Information Payers Payer name Insurance type Covered green party ID Valentín hand([employer] [id number] Social History Type Description Quantity Date Captured [...] Surgical History: NoneAllergies: Zofran- emesisVaccines: UTDPap: 2021 [id number]: Irregular with kyleenaContraception: KyleenaSTI testing?: Not interestedWork: [facility] specialistLives: PartnerTobacco: DeniesAlcohol: RarelyOther substances: DeniesDiet: Rices, [...]
== END 2024-12-13 23:59 | disposition left against medical advice (07) ==
PROVIDERS: Emergency Provider Emergency Medicine
DX: R10.31 Right lower quadrant pain (principal)
CPT/HCPCS: 36415; 80053; 81001; 83690; 85025; 99199